=== PATIENT | female | born 1960 | race Caucasian/White ===

== ENCOUNTER 2020-11-01 14:05 | Emergency (ER) | payer MEDICARE ==
[~2020-11-01] VITALS: Ht 167.6 cm; Wt 62.6 kg
[2020-11-01] MEDS ORDERED: METHYLPREDNISOLONE SOD SUCC 125 MG/2ML VIAL IM STA (14:42)
[2020-11-01] MEDS ORDERED: KETOROLAC TROMETHAMINE 60 MG/2 ML VIAL IM STA (14:42)
[2020-11-01] MEDS ORDERED: METHYLPREDNISOLONE SOD SUCC 125 MG/2ML VIAL ONE (15:46)
[2020-11-01 15:58] VITALS: BP 124/58
== END 2020-11-01 18:38 | disposition home or self-care (01) ==
LOC: FSED 14:45
DX: M54.2 Cervicalgia (principal); G35 Multiple sclerosis; I10 Essential (primary) hypertension; J45.909 Unspecified asthma, uncomplicated; E78.00 Pure hypercholesterolemia, unspecified
CPT/HCPCS: 96372; 99283; J1885; J2930